=== PATIENT | female | born 1950 | race Caucasian/White ===

== ENCOUNTER 2017-06-28 06:57 | Day surgery (SDC) | payer MEDICARE, BC ==
[2017-06-28] MEDS ORDERED: Lactated Ringers 1,000 ML IV SCH (07:00)
[2017-06-28] MEDS ORDERED: Lidocaine 1%/Sod Bicarbonate in NS 8.4% 1 ML Syringe PRN (07:00)
[2017-06-28] MEDS ORDERED: Sodium Chloride 0.9% 10 ML Syringe FLUSH PRN (07:00)
[2017-06-28] MEDS ORDERED: ceFAZolin 1 GM Vial ONE (07:17)
[2017-06-28] MEDS ORDERED: Lactated Ringers 1,000 ML ONE (07:17)
[2017-06-28] MEDS ORDERED: Ondansetron 4 MG/2 ML SDV ONE (07:17)
[2017-06-28] MEDS ORDERED: Propofol 200 MG/20 ML SDV ONE (07:17)
[2017-06-28] MEDS ORDERED: fentaNYL 250 MCG/5 ML SDV ONE (07:17)
[2017-06-28] MEDS ORDERED: Rocuronium 50 MG/5 ML Vial ONE (07:17)
[2017-06-28] MEDS ORDERED: Midazolam 1 MG/ML 2 ML SDV ONE (07:17)
[2017-06-28] MEDS ORDERED: Lidocaine 1% 4 ML ONE (07:18)
[2017-06-28] MEDS ORDERED: Lidocaine 1% with EPINEPHrine 1:100,000 20 ML MDV ONE (07:18)
[2017-06-28] MEDS ORDERED: Dexamethasone 4 MG/ML 5 ML MDV ONE (07:18)
[2017-06-28] MEDS ORDERED: Ketorolac 30 MG/ML SDV ONE (07:18)
[2017-06-28] MEDS ORDERED: Sodium Chloride 0.9% 50 ML SDV ONE (07:18)
--- NOTE | 2017-06-28 07:34 | PCM.PREANE ---
Preanesthetic Assessment - Procedure Proposed Procedure: Anterior and Posterior Repair Perineoplasty - Anesthesia/Transfusion/Family Hx Anesthesia History: Prior Anesthesia Without Reaction Family History of Anesthesia Reaction: No Transfusion History: Unknown Intubation History: Unknown - Review of Systems General: No Symptoms Pulmonary: No Symptoms Cardiovascular: No Symptoms Gastrointestinal: No Symptoms Neurological: No Symptoms Other: Reports: None, Anxiety - Physical Assessment NPO Status Date: 06/27/17 NPO Status Time: 22:00 Pulse: 88 O2 Sat by Pulse Oximetry: 95 Respiratory Rate: 16 Blood Pressure: 152/87 Temperature: 37.1 C Weight: 58.967 kg ASA Class: 2 Mental Status: Alert & Oriented x3 Airway Class: Mallampati = 2 Dentition: Reports: Caries Thyro-Mental Finger Breadths: 3 Mouth Opening Finger Breadths: 3 ROM/Head Extension: Full Lungs: Clear to Auscultation, Normal Respiratory Effort Cardiovascular: Regular Rate, Regular Rhythm - Lab Values: Laboratory Last Values WBC 6.60 K/mm3 (3.98-10.04) 06/23/17 12:18 RBC 4.17 M/mm3 (3.98-5.22) 06/23/17 12:18 Hgb 14.2 gm/L (11.2-15.7) 06/23/17 12:18 Hct 41.2 % (34.1-44.9) 06/23/17 12:18 MCV 98.8 fl (79.4-94.8) H 06/23/17 12:18 MCH 34.1 pg (25.6-32.2) H 06/23/17 12:18 MCHC 34.5 g/dl (32.2-35.5) 06/23/17 12:18 RDW Std Deviation 44.0 fL (36.4-46.3) 06/23/17 12:18 Plt Count 293 K/mm3 (182-369) 06/23/17 12:18 MPV 8.8 fl (9.4-12.3) L 06/23/17 12:18 Neut % (Auto) 74.5 % (34.0-71.1) H 06/23/17 12:18 Lymph % (Auto) 16.4 % (19.3-51.7) L 06/23/17 12:18 [place] % (Auto) 7.4 % (4.7-12.5) 06/23/17 12:18 Eos % (Auto) 1.1 (0.7-5.8) 06/23/17 12:18 Baso % (Auto) 0.3 % (0.1-1.2) 06/23/17 12:18 Neut # (Auto) 4.92 K/mm3 (1.56-6.13) 06/23/17 12:18 Lymph # (Auto) 1.08 K/mm3 (1.18-3.74) L 06/23/17 12:18 [place] # (Auto) 0.49 K/mm3 (0.24-0.36) H 06/23/17 12:18 Eos # (Auto) 0.07 K/mm3 (0.04-0.36) 06/23/17 12:18 Baso # (Auto) 0.02 K/mm3 (0.01-0.08) 06/23/17 12:18 Urine Color Yellow (Yellow) 06/23/17 12:18 Urine Appearance Clear (Clear) 06/23/17 12:18 Urine pH 7.0 (5.0-8.0) 06/23/17 12:18 Ur Specific [place] 1.015 (1.005-1.030) 06/23/17 12:18 Urine Protein Negative (Negative) 06/23/17 12:18 Urine Glucose (UA) Negative (Negative) 06/23/17 12:18 Urine Ketones Negative (Negative) 06/23/17 12:18 Urine Occult Blood Negative (Negative) 06/23/17 12:18 Urine Nitrite Positive (Negative) H 06/23/17 12:18 Urine Bilirubin Negative (Negative) 06/23/17 12:18 Urine Urobilinogen 0.2 (0.2-1.0) 06/23/17 12:18 Ur Leukocyte Esterase 3+ (Negative) H 06/23/17 12:18 - Allergies Allergies/Adverse Reactions: Allergies Allergy/AdvReac Type Severity Reaction Status Date / Time No Known Allergies Allergy Verified 06/27/17 14:17 - Acknowledgements Anesthesia Type Planned: General Anesthesia Pt an Appropriate Candidate for the Planned Anesthesia: Yes Alternatives and Risks of Anesthesia Discussed w Pt/Guardian: Yes Pt/Guardian Understands and Agrees with Anesthesia Plan: Yes PreAnesthesia Questionnaire HEENT History: Reports: Impaired Vision Other HEENT History: glasses Cardiovascular History: Reports: None Respiratory History: Reports: Other (See Below) Other Respiratory History: cough Gastrointestinal History: Reports: None Genitourinary History: Reports: Other (See Below) Other Genitourinary History: patient states has trouble emptying bladder completely, also has trouble starting stream Other OB/BYN History: hysterectomy Other Musculoskeletal History: arthritis, polymyalgia Neurological History: Reports: None Psychiatric History: Reports: Anxiety Other Endocrine/Metabolic History: nodules on thyroid Hematologic History: Reports: None Immunologic History: Reports: None Oncologic (Cancer) History: Reports: None Dermatologic History: Reports: Other (See Below) Other Dermatologic History: actinic keratosis - Past Surgical History Head Surgeries/Procedures: Reports: None Cardiovascular Surgical History: Reports: None Respiratory Surgical History: Reports: None GI Surgical History: Reports: Colonoscopy Female Surgical History: Reports: Hysterectomy Male Surgical History: Reports: None Endocrine Surgical History: Reports: None Neurological Surgical History: Reports: None Musculoskeletal Surgical History: Reports: Other (See Below) Other Musculoskeletal Surgeries/Procedures:: low back surgery, left carpal tunnel release - SUBSTANCE USE Smoking Status *Q: Never Smoker Second Hand Smoke Exposure: No Days Per Week of Alcohol Use: 1 Number of Drinks Per Day: 1 Total Drinks Per Week: 1 Recreational Drug Use History: No - HOME MEDS Home Medications: Home Meds Biotin [Meribin] 1 cap PO DAILY 03/07/15 [History] Cinnamon Bark [Cinnamon] 1 cap PO DAILY 03/07/15 [History] Lactobacillus Acidophilus [Acidophilus] 1 cap PO DAILY 03/07/15 [History] Multivitamin [Multivitamins] 1 tab PO DAILY 03/07/15 [History] [place]-3 Fatty Acids/Fish Oil [Fish Oil 1,000 mg Softgel] 1 cap PO DAILY [History] Benzonatate [Benzonatate] 100 mg PO TID PRN 06/27/17 [History] Calcium Carbonate [Calcium] 1,000 mg PO DAILY 06/27/17 [History] Cholecalciferol (Vitamin D3) [Vitamin D3] 2,000 unit PO DAILY 06/27/17 [History] Folic Acid 1 mg PO DAILY 06/27/17 [History] Oseltamivir Phosphate [Oseltamivir Phosphate] 75 mg PO BID 06/27/17 [History] Promethazine HCl/Codeine [Promethazine-Codeine Syrup] 5 ml PO BEDTIME PRN [History] Ubidecarenone [Coq-10] 100 mg PO DAILY 06/27/17 [History] Oseltamivir Phosphate 75 mg PO BID 06/28/17 [History] - CURRENT (IN HOUSE) MEDS Current Meds: Current Medications Lactated Ringer's (Ringers, Lactated) 1,000 mls @ 125 mls/hr IV ASDIRECTED GENEVIEVE Stop: 06/28/17 23:00 Lidocaine/Sodium Bicarbonate (Buffered Lidocaine 1% In Ns 8.4%) 0.25 ml .XX ONETIME PRN PRN Reason: Prior to IV Start Stop: 06/28/17 18:00 Sodium Chloride (Saline Flush) 10 ml FLUSH ASDIRECTED PRN PRN Reason: Keep Vein Open Stop: 06/28/17 18:00 Discontinued Medications Cefazolin Sodium (Ancef) Confirm Administered Dose 2 gm .ROUTE .STK-MED ONE Stop: 06/28/17 07:18 Dexamethasone (Dexamethasone) Confirm Administered Dose 20 mg .ROUTE .STK-MED ONE Stop: 06/28/17 07:19 Fentanyl (Sublimaze) Confirm Administered Dose 250 mcg .ROUTE .STK-MED ONE Stop: 06/28/17 07:18 Lactated Ringer's (Ringers, Lactated) Confirm Administered Dose 1,000 mls @ as directed .ROUTE .STK-MED ONE Stop: 06/28/17 07:18 Lidocaine HCl (Xylocaine-Mpf 1%) Confirm Administered Dose 4 mls @ as directed .ROUTE .STK-MED ONE Stop: 06/28/17 07:19 Ketorolac Tromethamine (Toradol) Confirm Administered Dose 30 mg .ROUTE .STK- MED ONE Stop: 06/28/17 07:19 Midazolam HCl (Versed 1 Mg/Ml) Confirm Administered Dose 2 mg .ROUTE .STK-MED ONE Stop: 06/28/17 07:18 Ondansetron HCl (Zofran) Confirm Administered Dose 12 mg .ROUTE .STK-MED ONE Stop: 06/28/17 07:18 Propofol (Diprivan 20 Ml) Confirm Administered Dose 600 mg .ROUTE .STK-MED ONE Stop: 01/23/18 07:18 Rocuronium [place] (Zemuron) Confirm Administered Dose 50 mg .ROUTE .[facility] Stop: 06/28/17 07:18
[2017-06-28] MEDS ORDERED: Ondansetron 4 MG/2 ML SDV IVPUSH PRN ×2 (09:09→09:21)
[2017-06-28] MEDS ORDERED: Acetaminophen/oxyCODONE 325-5 MG Tab PO PRN (09:09)
[2017-06-28] MEDS ORDERED: ePHEDrine/Normal Saline 25 MG/5 ML Syringe ONE (09:16)
--- NOTE | 2017-06-28 09:19 | PCM.OPNOTE ---
- General Post-Op/Procedure Note Date of Surgery/Procedure: 06/28/17 Operative Procedure(s): Anterior and posterior vaginal repair with perineoplasty Findings: Grade 2-3 cystocele, grade 2 rectocele, vaginal atrophy Pre Op Diagnosis: 1. Grade 2-3 cystocele. 2. Grade 2 rectocele Post-Op Diagnosis: Same Anesthesia Technique: General ET Tube Other Anesthesia Type: Lidocaine quarter percent with epinephrinelocal Primary Surgeon: Mak Ingram Secondary Surgeon: Gerson Santos Anesthesia Provider: Daly Oswald Discharge Specialist: Golden Wang Reason Discharge Specialist Was Necessary: Retraction, assistance, quality of care, patient safety Role of Discharge Specialist: Retraction, assistance. Fluid Replacement, Intraop: 1,600 EBL in mLs: 20 Complications: None Condition: Good Free Text/Narrative:: Surgery duration: 46 minutes Procedure: The patient is taken to the operating room and placed in a supine position on the operating table. She received 2 g of Ancef preoperatively for infection prophylaxis. She had sequential compression stockings in place for DVT prophylaxis. Patient was administered general endotracheal anesthesia. She was placed in a dorsal lithotomy position and prepped and draped in the usual fashion. Anterior vaginal repair was performed. 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 Weighted speculum was placed in the vagina and the uppermost portion of the cystocele was identified. Two Allis clamps was placed at that uppermost point at a position approximately 1-1/2 cm lateral to the midline A second Allis clamp was placed approximately 2 cm from the urethral meatus. The areas and infiltrated with lidocaine quarter percent with epinephrine. Approximately 8 mL was used. The 2 lateral Allis clamps were retracted and an epithelial incision was made between the 2 clamps. A midline incision was then made with a Metzenbaum scissors. The overlying epithelium was then dissected off of the underlying vesicovaginal fascia. This all to lateral which when approximately midline was felt to be adequate to reduce the cystocele. When this was done approximately 4 trapezoidal shaped sutures of 0 Monocryl were then placed reapproximating the lateral supportive tissue midline and reducing the rectocele. At this point the excess epithelium bilaterally was removed and the epithelium was closed in a running fashion with 2 short segments to decrease likelihood of shortening of the vagina. Rectocele was then performed. The uppermost portion of the rectocele was identified and was grasped midline with an Allis clamp. The introital area was grasped at approximately the 4:00 and 8:00 positions at the junction of the vaginal and vulvar epithelium. The area of epithelium was then infiltrated with lidocaine quarter percent with epinephrine. A sudeep-shaped piece of epithelium was removed from the posterior introital and perineal area. The vaginal epithelium was then undermined superiorly to the top of the rectocele. Was then incised midline. With sharp and blunt dissection the epithelium was then dissected off of the underlying vesicovaginal fascia. At this point approximately 5 sutures of 0 Monocryl were placed to reapproximate the lateral supportive tissue midline and reduce the rectocele. The excess epithelium was then excised and the epithelium overlying the rectocele repair was then reapproximated with a running suture of 3-0 Monocryl. Perineoplasty was then performed with approximately 4 V-shaped stitches of 0 Monocryl in placed to reapproximate the lateral tissue midline, rebuild the perineum about 1 cm and the vagina approximately 1 cm. The epithelium of the introitus and perineal body was then reapproximated using 3-0 Monocryl in an episiotomy repair fashion. At this time sponge, instrument and needle counts were correct. The patient was returned to supine position and was discharged from the operating room in good condition.
--- NOTE | 2017-06-28 09:20 | PCM.POSTAN ---
POST ANESTHESIA ASSESSMENT - MENTAL STATUS Mental Status: Oriented, Somnolent - VITAL SIGNS Pulse Rate: 84 SaO2: 95 Resp Rate: 18 Blood Pressure: 116/63 Temperature: 36.1 C - RESPIRATORY Respiratory Status: Respiratory Rate WNL, Airway Patent, O2 Saturation Stable, Supplemental Oxygen - CARDIOVASCULAR CV Status: Pulse Rate WNL, Blood Pressure Stable - GASTROINTESTINAL GI Status: No Symptoms - PAIN Pain Score: 0 - POST OP HYDRATION Hydration Status: Adequate & Stable
[2017-06-28] MEDS ORDERED: HYDROmorphone 0.5 MG/0.5 ML Syringe IVPUSH PRN (09:21)
[2017-06-28] MEDS ORDERED: fentaNYL 100 MCG/2 ML SDV IVPUSH PRN (09:21)
--- NOTE | 2017-06-28 10:55 | PCM48HPAN ---
Post Anesthesia Note - EVALUATION WITHIN 48HRS OF ANESTHETIC Vital Signs in Normal Range: Yes Patient Participated in Evaluation: Yes Respiratory Function Stable: Yes Airway Patent: Yes Cardiovascular Function Stable: Yes Hydration Status Stable: Yes Pain Control Satisfactory: Yes Nausea and Vomiting Control Satisfactory: Yes Mental Status Recovered: Yes
[2017-06-28 11:12] VITALS: BP 138/77
== END 2017-06-28 11:14 ==
LOC: JD.SDS 06:57
PROVIDERS: ATTEND Obstetrics & Gynecology
DX: N81.6 Rectocele (principal); N81.10 Cystocele, unspecified; L57.0 Actinic keratosis; N95.2 Postmenopausal atrophic vaginitis; B37.0 Candidal stomatitis; F41.8 Other specified anxiety disorders; R39.9 Unspecified symptoms and signs involving the genitourinary system; M75.101 Unspecified rotator cuff tear or rupture of right shoulder, not specified as traumatic; M19.90 Unspecified osteoarthritis, unspecified site; E04.1 Nontoxic single thyroid nodule; Z79.899 Other long term (current) drug therapy; Z90.710 Acquired absence of both cervix and uterus; Z98.890 Other specified postprocedural states
CPT/HCPCS: 36415; 56810; 57260; 81003; 85025; J0690; J1100; J1885; J2250; J2405; J3010; J7050; J7120; 00942; J2704

== ENCOUNTER → 2021-04-14 | Day surgery (SDC) | payer MEDICARE, BC ==
[~2021-04-14] MED LIST: Lactated Ringers 1,000 ML IV SCH; Lactated Ringers 1,000 ML ONE; Lidocaine 1%/Sod Bicarbonate in NS 8.4% 1 ML Syringe IDERM PRN; Propofol 200 MG/20 ML SDV ONE; Sodium Chloride 0.9% 10 ML Syringe FLUSH PRN; ePHEDrine 50 MG/ML SDV ONE; fentaNYL 100 MCG/2 ML SDV ONE
--- NOTE | 2021-04-14 06:20 | PCM.PREANE ---
Preanesthetic Assessment - Procedure Proposed Procedure: Screening Colonoscopy - Anesthesia/Transfusion/Family Hx Anesthesia History: Prior Anesthesia Without Reaction Family History of Anesthesia Reaction: No Transfusion History: No Prior Transfusion(s) Intubation History: Unknown - Review of Systems General: No Symptoms Pulmonary: No Symptoms (ETOH: occasionally) Cardiovascular: No Symptoms Gastrointestinal: No Symptoms Neurological: No Symptoms (History of back surgery/History of vertigo), Numbness (History of polymyalgia rheumatica) Other: Reports: Thyroid Problems (thyroid nodule noted), Sinus Problem (allergic rhinitis), Anxiety - Physical Assessment NPO Status Date: 04/13/21 NPO Status Time: 04:00 (prep) Vital Signs: HR: 75 Sat: 99% Temp: 98.5 Resp: 14 B/P: 130/84 Height: 1.65 m Weight: 59 kg ASA Class: 2 Mental Status: Alert & Oriented x3 Airway Class: Mallampati = 2 Dentition: Reports: Normal Dentition, [place](s), Caries Thyro-Mental Finger Breadths: 3 Mouth Opening Finger Breadths: 3 ROM/Head Extension: Full Lungs: Clear to Auscultation, Normal Respiratory Effort Cardiovascular: Regular Rate, Regular Rhythm, No Murmurs - Lab Values: All labs reviewed and noted and within acceptable ranges to proceed with s cheduled procedure. - Allergies Allergies/Adverse Reactions: Allergies Allergy/AdvReac Type Severity Reaction Status Date / Time No Known Allergies Allergy Verified 04/13/21 16:02 - Anesthesia Plan Pre-Op Medication Ordered: None - Acknowledgements Anesthesia Type Planned: MAC Pt an Appropriate Candidate for the Planned Anesthesia: Yes Alternatives and Risks of Anesthesia Discussed w Pt/Guardian: Yes Pt/Guardian Understands and Agrees with Anesthesia Plan: Yes PreAnesthesia Questionnaire HEENT History: Reports: Allergic Rhinitis, Impaired Vision Other HEENT History: glasses, cerumen impaction Cardiovascular History: Reports: None Respiratory History: Reports: Other (See Below) Other Respiratory History: cough Gastrointestinal History: Reports: Colon Polyp Genitourinary History: Reports: Other (See Below) Other Genitourinary History: patient states has trouble emptying bladder completely, also has trouble starting stream, cystocele, rectocele Other OB/BYN History: atrophic vaginitis, vaginal dryness, pelvic floor tension Musculoskeletal History: Reports: Arthritis Other Musculoskeletal History: arthritis, polymyalgia rhematica, low back pain, right rotator cuff tear, ganglion cyst, bursitis Neurological History: Reports: Vertigo Psychiatric History: Reports: Anxiety Endocrine/Metabolic History: Reports: Other (See Below) Other Endocrine/Metabolic History: nodules on thyroid, hirsutism Hematologic History: Reports: None Immunologic History: Reports: None Oncologic (Cancer) History: Reports: None Dermatologic History: Reports: Other (See Below) Other Dermatologic History: actinic keratosis, itching to scalp, foot callus, skin infection, skin tag - Infectious Disease History Infectious Disease History: Reports: None - Past Surgical History Head Surgeries/Procedures: Reports: None Cardiovascular Surgical History: Reports: None Respiratory Surgical History: Reports: None GI Surgical History: Reports: Colonoscopy Female Surgical History: Reports: Hysterectomy, Oophorectomy Male Surgical History: Reports: None Endocrine Surgical History: Reports: None Neurological Surgical History: Reports: None Musculoskeletal Surgical History: Reports: Other (See Below) Other Musculoskeletal Surgeries/Procedures:: low back surgery, left carpal tunnel release Oncologic Surgical History: Reports: None - SUBSTANCE USE Tobacco Use Status *Q: Never Tobacco User Recreational Drug Use History: No - HOME MEDS Home Medications: Home Meds [place]-3 Fatty Acids/Fish Oil [Fish Oil 1,000 mg Softgel] 1 cap PO DAILY 03/07/15 [History] Calcium Carbonate [Calcium] 1,000 mg PO DAILY 06/27/17 [History] Cholecalciferol (Vitamin D3) [Vitamin D3] 2,000 unit PO DAILY 06/27/17 [History] Ubidecarenone [Coq-10] 100 mg PO DAILY 06/27/17 [History] Cartilage/Collagen/Bor/Hyalur [Joint Health Tablet] 1 tab PO DAILY 04/13/21 [History] Cyanocobalamin (Vitamin B-12) [Vitamin B-12] 1,000 mcg PO DAILY 04/13/21 [History] Zinc Amino Acid Chelate [Zinc] 50 mg PO DAILY 04/13/21 [History] - CURRENT (IN HOUSE) MEDS Current Meds: Current Medications Lactated Ringer's (Ringers, Lactated) 1,000 mls @ 125 mls/hr IV ASDIRECTED GENEVIEVE Stop: 04/14/21 23:00 Lidocaine/Sodium Bicarbonate (Lidocaine 1%/Sod Bicarbonate In Ns 8.4% 1 Ml Syringe) 0.25 ml IDERM ONETIME PRN PRN Reason: Prior to IV Start Stop: 04/14/21 18:00 Sodium Chloride (Sodium Chloride 0.9% 10 Ml Syringe) 10 ml FLUSH ASDIRECTED PRN PRN Reason: Keep Vein Open Stop: 04/14/21 18:00
--- NOTE | 2021-04-14 08:21 | PCM.PRNOTE ---
- Free Text/Narrative Note: Date: 04/14/2021 Procedure: screening colonoscopy History: tubular adenoma removed on screening colonoscopy 6 years ago Endoscopist: Mikel Cui MD Findings: excellent prep. Cecum reached. No polyps identified. Advanced diverticulosis. Detailed Report: The patient was taken to the endoscopy suite and placed in left lateral decubitus position. Timeout was performed and monitored anesthesia care was initiated. The anus appeared normal and digital rectal exam was unremarkable. The colonoscope was inserted and advanced all the way to the cecum. The appendiceal orifice and ileocecal junction were visualized. Prep was excellent. The scope was slowly withdrawn and mucosal surfaces carefully inspected. No polyps were identified. There was extensive diverticular disease, concentrated most within the bounds of the sigmoid colon. On retroflexion in the rectum no pathology was noted. Air was suctioned from the distal colon and rectum prior to withdrawal of the scope. The patient tolerated the procedure well.
[2021-04-14 09:51] VITALS: BP 114/65; PULSE 71
== END | disposition home or self-care (01) ==
LOC: JD.SDS 07:40
PROVIDERS: ATTEND Surgery
DX: Z12.11 Encounter for screening for malignant neoplasm of colon (principal); Z86.010 Personal history of colon polyps; Z98.890 Other specified postprocedural states
CPT/HCPCS: G0105; J2704; J3010; J7120; 00812

== ENCOUNTER 2022-08-09 14:27 | Emergency (ER) | payer MEDICARE, BC ==
[2022-08-09] MEDS ORDERED: Sodium Chloride 0.9% 10 ML Syringe FLUSH PRN (14:40)
[2022-08-09 16:20] VITALS: BP 136/67; PULSE 71
== END 2022-08-09 16:15 | disposition home or self-care (01) ==
LOC: JD.ED 14:27
DX: R07.89 Other chest pain (principal)
CPT/HCPCS: 36415; 71045; 80053; 83735; 83880; 84484; 85025; 85610; 85730; 93005; 99285; J3490; 93010; 99284

== ENCOUNTER 2023-08-02 09:14 | Emergency (ER) | payer MEDICARE, BC ==
[2023-08-02 11:52] VITALS: BP 128/65; PULSE 69
== END 2023-08-02 11:00 | disposition home or self-care (01) ==
LOC: JD.ED 09:14
DX: M70.61 Trochanteric bursitis, right hip (principal); M16.11 Unilateral primary osteoarthritis, right hip; Z86.16 Personal history of COVID-19; Z79.899 Other long term (current) drug therapy
CPT/HCPCS: 73502-26-RT; 73502-RT; 99283